=== PATIENT | male | born 1990 | race Caucasian/White ===

== ENCOUNTER 2019-01-29 19:27 | Emergency (ER) | payer SELFPAY ==
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
[2019-01-29] MEDS: fentaNYL CITRATE/PF 100 MCG/2 ML INJ. IM ONE (21:13)
[2019-01-29] MEDS: HYDROcodone /APAP 5/325 1 EACH TABLET PO ONE (21:17)
[2019-01-29 22:10] VITALS: BP 123/70
[2019-01-29 23:24] LABS: APPEARANCE,URINE CLEAR (CLEAR); COLOR,URINE YELLOW (YELLOW); OCCULT BLOOD,URINE TRACE-LYSED (NEGATIVE); PH URINE 5.5 (5.0 - 8.0); UROBILINOGEN URINE 0.2 Eu (0.2-1.0)
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
== END 2019-01-29 21:30 | disposition home or self-care (01) ==
LOC: ED 19:27
DX: S02.611A Fracture of condylar process of right mandible, initial encounter for closed fracture (principal); S00.81XA Abrasion of other part of head, initial encounter; S20.411A Abrasion of right back wall of thorax, initial encounter; S30.811A Abrasion of abdominal wall, initial encounter; S50.312A Abrasion of left elbow, initial encounter; Y08.89XA Assault by other specified means, initial encounter; Y93.9 Activity, unspecified; Y92.9 Unspecified place or not applicable
CPT/HCPCS: 70450; 70486; 71250; 72125; 74176; 81002; 96372; 99284; 99285; A9270; J3010